=== PATIENT | female | born 1950 | race African-American/Black ===

== ENCOUNTER 2023-11-09 11:52 | Inpatient (IN) | payer MEDICARE, OTHER ==
[~2023-11-09] VITALS: Ht 165.1 cm; Wt 70.8 kg
[2023-11-09] MEDS ORDERED: 0.9% SODIUM CHLORIDE 10 ML SYRINGE IVP PRN (12:15)
[2023-11-09] MEDS: SODIUM CHLORIDE 0.9% 2,700 ML IV ONE (12:18)
[2023-11-09] MEDS: METOPROLOL TARTRATE 5 MG/5 ML VIAL IVP ONE (12:26)
[2023-11-09] MEDS ORDERED: ONDANSETRON HCL 4 MG/2 ML VIAL IVP PRN (12:30)
[2023-11-09] MEDS ORDERED: ACETAMINOPHEN 325 MG TABLET PO PRN (12:30)
[2023-11-09 12:53] LABS: APPEARANCE,URINE HAZY (CLEAR); COLOR,URINE YELLOW (YELLOW); GLUCOSE, URINE (UA) NEGATIVE (NEGATIVE); KETONES,URINE TRACE mg/dL (NEGATIVE); LEUKOCYTE ESTERASE ,URINE NEGATIVE (NEGATIVE); NITRATE,URINE NEGATIVE (NEGATIVE); OCCULT BLOOD,URINE TRACE (NEGATIVE); PH,URINE 5.5 (5.0-8.0); PROTEIN,URINE 30-70 mg/dL (NEGATIVE); SPECIFIC GRAVITIY, URINE 1.026 (1.003-1.030)
[2023-11-09 12:58] LABS: BILIRUBIN,URINE SMALL (NEGATIVE)
[2023-11-09 13:22] LABS: BACTERIA,URINE Few /HPF (None Seen); RBC,URINE 0-2 /HPF (0-2); SQUAMOUS EPITHELIAL CELL,UR Many /LPF (None Seen); WBC,URINE None Seen /HPF (0-5)
[2023-11-09 13:41] LABS: GLUCOMETER DEV NAME(LOC) ERT.5; GLUCOSE,POINT OF CARE 96 MG/DL (70-110)
[2023-11-09 13:47] LABS: BASOPHILS % (AUTO) 0.5 % (0.0-2.0); EOSINOPHILS % (AUTO) 1.2 % (1.0-6.0); HEMATOCRIT 45.3 % (36-46); HEMOGLOBIN 14.6 g/dL (12.0-16.0); LYMPHOCYTES # (AUTO) 1.9 K/uL (1.0-4.8); LYMPHOCYTES % (AUTO) 47.1 % (22.0-44.0); MEAN CORPUSCULAR HEMOGLOBIN 28.5 pg (26.0-34.0); MEAN CORPUSCULAR HGB CONC 32.2 G/dL (31.0-37.0); MEAN CORPUSCULAR VOLUME 88 fL (80-100); MONOCYTES # (AUTO) 0.4 K/uL (0.1-1.0); MONOCYTES % (AUTO) 9.5 % (2.0-9.0); NEUTROPHILS # (AUTO) 1.7 K/uL (1.8-7.7); NEUTROPHILS % (AUTO) 41.7 % (40.0-70.0); PLATELET COUNT (AUTO) 226 K/uL (150-450); RED BLOOD CELL COUNT(AUTO) 5.12 MIL/uL (4.00-5.20); RED CELL DISTRIBUTION WIDTH 16.7 % (11.5-14.5)
[2023-11-09 13:48] LABS: PH,URINE DRUG SCREEN 5.5 (5.0-8.0)
[2023-11-09 13:54] LABS: INR 1.1 (0.9-1.1); PROTHROMBIN TIME 11.2 SEC (9.4-11.6)
[2023-11-09 13:55] LABS: ANION GAP 9 mmol/L (8-16); CALCIUM, TOTAL 9.1 mg/dL (8.8-10.5); CARBON DIOXIDE 28 mmol/L (22-29); CHLORIDE 107 mmol/L (98-107); CREATININE 1.44 mg/dL (0.60-1.30); GLOMERULAR FILTR. RATE CALC 43 mL/min (>60); GLUCOSE,RANDOM 92 mg/dL (70-110); POTASSIUM 3.4 mmol/L (3.5-5.1); SODIUM SERUM 144 mmol/L (136-145); UREA NITROGEN, BLOOD 26 mg/dL (7-18)
[2023-11-09 13:56] LABS: ALCOHOL, URINE DRUG SCREEN NEGATIVE (NEGATIVE); AMPHET/METH SCREEN,URINE POSITIVE (NEGATIVE); BARBITURATE SCREEN, URINE NEGATIVE (NEGATIVE); BENZODIAZEPINES SCREEN,URINE NEGATIVE (NEGATIVE); CANNABINOID SCREEN,URINE NEGATIVE (NEGATIVE); COCAINE SCREEN,URINE NEGATIVE (NEGATIVE); METHADONE SCREEN, URINE NEGATIVE (NEGATIVE); OPIATE SCREEN,URINE NEGATIVE (NEGATIVE); PHENCYCLIDINE SCREEN,URINE NEGATIVE (NEGATIVE)
[2023-11-09 14:08] LABS: LACTIC ACID 1.6 mmol/L (0.4-2.0)
[2023-11-09 14:10] LABS: ALANINE AMINOTRANSFERASE 15 U/L (12-78); ALBUMIN 2.8 g/dL (3.4-5.0); ALKALINE PHOSPHATASE 99 U/L (46-116); ASPARTATE AMINOTRANSFERASE 36 U/L (15-37); BILIRUBIN,TOTAL 0.8 mg/dL (0.1-1.0); THYROID STIMULATING HORMONE 4.18 uIU/mL (0.36-3.74); TOTAL PROTEIN, SERUM 6.7 g/dL (6.4-8.2)
[2023-11-09] MEDS: SODIUM CHLORIDE 0.9% 1,000 ML IV ONE ×2 (14:11→22:51)
[2023-11-09] MEDS: NALOXONE HCL 1 MG/ML 2 ML SYRINGE IVP ONE (14:11)
[2023-11-09] MEDS ORDERED: POTASSIUM CHLORIDE 20 MEQ ER TABLET PO PRN (14:45)
[2023-11-09] MEDS: LABETALOL HCL 5 MG/ML 20 ML VIAL IVP ONE (15:02)
[2023-11-09] MEDS: HEPARIN SODIUM,PORCINE 5,000 UNITS/ML VIAL SQ SCH (15:43)
[2023-11-09] MEDS ORDERED: SODIUM CHLORIDE 0.9% 500 ML IV ONE (17:37)
[2023-11-09] MEDS: AMIODARONE HCL 150 MG in DEXTROSE 5%-WATER 97 ML IV ONE (17:52)
[2023-11-09] MEDS: AMIODARONE HCL 360 MG in DEXTROSE 5%-WATER 242.8 ML IV ONE (18:30)
[2023-11-09 19:07] LABS: B-TYPE NATRIURETIC PEPTIDE 67 pg/mL (0-100)
[2023-11-09 19:16] LABS: CREATINE KINASE, TOTAL ONLY 50 U/L (26-192)
[2023-11-09 19:21] LABS: TROPONIN I-HIGH SENSITIVITY 78 ng/L (<51)
[2023-11-09 20:37] VITALS: BP 141/82; PULSE 59; RESP 19; TEMP 97.8; O2SAT 98
[2023-11-09] MEDS: AMIODARONE HCL 540 MG in DEXTROSE 5%-WATER 239.2 ML IV ONE (23:44)
[2023-11-10 00:22] VITALS: BP 138/91; PULSE 102; RESP 18; TEMP 98.2; O2SAT 96
[2023-11-10 06:06] VITALS: BP 143/118; PULSE 96; RESP 18; TEMP 98; O2SAT 88
[2023-11-10] MEDS: PANTOPRAZOLE SODIUM 40 MG/VIAL IVP SCH (08:22)
[2023-11-10 08:25] VITALS: BP 123/76; PULSE 88; RESP 18; TEMP 98; O2SAT 96
[2023-11-10 12:03] VITALS: BP 172/88; PULSE 71; RESP 18; TEMP 98; O2SAT 97
[2023-11-10 16:51] VITALS: BP 148/99; PULSE 100; RESP 18; TEMP 98.2; O2SAT 96
[2023-11-10 16:52] LABS: BASOPHILS % (AUTO) 0.7 % (0.0-2.0); EOSINOPHILS % (AUTO) 2.4 % (1.0-6.0); HEMATOCRIT 41.6 % (36-46); HEMOGLOBIN 13.6 g/dL (12.0-16.0); LYMPHOCYTES # (AUTO) 1.8 K/uL (1.0-4.8); LYMPHOCYTES % (AUTO) 48.5 % (22.0-44.0); MEAN CORPUSCULAR HEMOGLOBIN 28.8 pg (26.0-34.0); MEAN CORPUSCULAR HGB CONC 32.8 G/dL (31.0-37.0); MEAN CORPUSCULAR VOLUME 88 fL (80-100); MONOCYTES # (AUTO) 0.4 K/uL (0.1-1.0); MONOCYTES % (AUTO) 10.6 % (2.0-9.0); NEUTROPHILS # (AUTO) 1.4 K/uL (1.8-7.7); NEUTROPHILS % (AUTO) 37.8 % (40.0-70.0); PLATELET COUNT (AUTO) 185 K/uL (150-450); RED BLOOD CELL COUNT(AUTO) 4.73 MIL/uL (4.00-5.20); WHITE BLOOD COUNT (AUTO) 3.8 K/uL (4.5-11.0)
[2023-11-10 17:10] LABS: ALANINE AMINOTRANSFERASE 15 U/L (12-78); ALKALINE PHOSPHATASE 92 U/L (46-116); ANION GAP 11 mmol/L (8-16); ASPARTATE AMINOTRANSFERASE 34 U/L (15-37); CALCIUM, TOTAL 9.3 mg/dL (8.8-10.5); CARBON DIOXIDE 26 mmol/L (22-29); CHLORIDE 105 mmol/L (98-107); CREATININE 1.01 mg/dL (0.60-1.30); FREE T4 (FREE THYROXINE) 1.23 ng/dL (0.76-1.46); GLOMERULAR FILTR. RATE CALC > 60 mL/min (>60); GLUCOSE,RANDOM 89 mg/dL (70-110); SODIUM SERUM 142 mmol/L (136-145); TOTAL PROTEIN, SERUM 6.6 g/dL (6.4-8.2); UREA NITROGEN, BLOOD 13 mg/dL (7-18)
[2023-11-10 17:11] LABS: TROPONIN I-HIGH SENSITIVITY 55 ng/L (<51)
[2023-11-10] MEDS ORDERED: SODIUM CHLORIDE 0.9% 500 ML IV ONE (18:06)
[2023-11-10] MEDS: AMIODARONE HCL 750 MG in DEXTROSE 5%-WATER 485 ML IV SCH (18:32)
[2023-11-10] MEDS: POTASSIUM CHL 10 MEQ/WATER 50 ML IV PRN (18:38)
[2023-11-10 20:30] VITALS: BP 160/86; PULSE 93; RESP 22; O2SAT 100
[2023-11-11] VITALS (7 sets, daily range): BP systolic 98–166; BP diastolic 45–105; PULSE 77–127; RESP 18–20; TEMP 96.5–97.6; O2SAT 95–100
[2023-11-11] MEDS: ATORVASTATIN CALCIUM 20 MG TABLET PO SCH (08:43)
[2023-11-11] MEDS: ASPIRIN 81 MG CHEWABLE TABLET PO SCH (08:43)
[2023-11-11] MEDS ORDERED: HEPARIN SODIUM 25000 UNITS/D5W 250 ML IV PRN (11:00)
[2023-11-11] MEDS ORDERED: HEPARIN SODIUM,PORCINE 5,000 UNITS/ML VIAL IVP PRN ×2 (11:00)
[2023-11-11 11:29] LABS: BASOPHILS % (AUTO) 1.1 % (0.0-2.0); HEMATOCRIT 45.3 % (36-46); HEMOGLOBIN 14.7 g/dL (12.0-16.0); LYMPHOCYTES # (AUTO) 1.8 K/uL (1.0-4.8); LYMPHOCYTES % (AUTO) 39.2 % (22.0-44.0); MEAN CORPUSCULAR HEMOGLOBIN 28.7 pg (26.0-34.0); MEAN CORPUSCULAR HGB CONC 32.4 G/dL (31.0-37.0); MEAN CORPUSCULAR VOLUME 89 fL (80-100); MONOCYTES # (AUTO) 0.6 K/uL (0.1-1.0); MONOCYTES % (AUTO) 12.8 % (2.0-9.0); NEUTROPHILS % (AUTO) 44.9 % (40.0-70.0); PLATELET COUNT (AUTO) 183 K/uL (150-450); RED BLOOD CELL COUNT(AUTO) 5.11 MIL/uL (4.00-5.20); RED CELL DISTRIBUTION WIDTH 16.9 % (11.5-14.5); WHITE BLOOD COUNT (AUTO) 4.5 K/uL (4.5-11.0)
[2023-11-11] MEDS: ENOXAPARIN SODIUM 80 MG/0.8 ML PF SYRINGE SQ SCH (20:46)
[2023-11-11] MEDS: HydrALAZINE HCL 20 MG/ML VIAL IVP PRN (20:46)
[2023-11-11] MEDS: METOPROLOL TARTRATE 25 MG TABLET PO SCH (20:55)
[2023-11-12] VITALS: BP 142/82; PULSE 103; RESP 17; TEMP 96.9; O2SAT 96
[2023-11-12 04:00] VITALS: BP 151/93; PULSE 80; RESP 18; TEMP 97.6; O2SAT 97
[2023-11-12] MEDS: METOPROLOL TARTRATE 5 MG/5 ML VIAL IVP ONE (06:46)
[2023-11-12 08:24] VITALS: BP 140/91; PULSE 96; RESP 19; TEMP 97.8; O2SAT 99
[2023-11-12] MEDS: DEXTROSE 5%-0.45% SODIUM CHL 1,000 ML IV SCH (11:00)
[2023-11-12 12:33] VITALS: BP 159/90; PULSE 102; RESP 18; TEMP 98.6; O2SAT 99
[2023-11-12] MEDS: HALOPERIDOL LACTATE 5 MG/ML VIAL IM PRN (16:32)
[2023-11-12 16:42] VITALS: BP 148/96; PULSE 92; RESP 18; TEMP 97.9; O2SAT 96
[2023-11-12 20:12] VITALS: BP 147/76; PULSE 70; RESP 20; TEMP 97.3; O2SAT 93
[2023-11-13 00:38] VITALS: BP 129/75; PULSE 70; RESP 20; TEMP 97.5; O2SAT 95
[2023-11-13 03:52] VITALS: BP 135/86; PULSE 92; RESP 20; TEMP 97.7; O2SAT 97
[2023-11-13] MEDS: METOPROLOL TARTRATE 5 MG/5 ML VIAL IVP SCH (05:02)
[2023-11-13 09:46] VITALS: BP 129/97; PULSE 107; RESP 18; TEMP 97.1; O2SAT 97
[2023-11-13 11:27] VITALS: BP 125/73; PULSE 98; RESP 19; TEMP 98; O2SAT 96
[2023-11-13 12:32] LABS: BASOPHILS % (AUTO) 0.4 % (0.0-2.0); EOSINOPHILS % (AUTO) 1.4 % (1.0-6.0); HEMATOCRIT 50.9 % (36-46); HEMOGLOBIN 16.5 g/dL (12.0-16.0); LYMPHOCYTES # (AUTO) 1.8 K/uL (1.0-4.8); LYMPHOCYTES % (AUTO) 31.5 % (22.0-44.0); MEAN CORPUSCULAR HEMOGLOBIN 28.6 pg (26.0-34.0); MEAN CORPUSCULAR HGB CONC 32.4 G/dL (31.0-37.0); MEAN CORPUSCULAR VOLUME 88 fL (80-100); MONOCYTES # (AUTO) 0.8 K/uL (0.1-1.0); MONOCYTES % (AUTO) 13.6 % (2.0-9.0); NEUTROPHILS % (AUTO) 53.1 % (40.0-70.0); PLATELET COUNT (AUTO) 174 K/uL (150-450); RED BLOOD CELL COUNT(AUTO) 5.78 MIL/uL (4.00-5.20); RED CELL DISTRIBUTION WIDTH 17.1 % (11.5-14.5); WHITE BLOOD COUNT (AUTO) 5.6 K/uL (4.5-11.0)
[2023-11-13] MEDS: LORazepam 2 MG/ML VIAL IVP ONE (13:50)
[2023-11-13 14:21] LABS: CALCIUM, TOTAL 9.8 mg/dL (8.8-10.5); CREATININE 1.25 mg/dL (0.60-1.30); POTASSIUM 3.8 mmol/L (3.5-5.1)
[2023-11-13 16:36] VITALS: BP 171/90; PULSE 93; RESP 20; TEMP 97.8; O2SAT 99
[2023-11-13 20:30] VITALS: BP 92/50; PULSE 71; RESP 18; TEMP 97.8; O2SAT 99
[2023-11-14 01:32] VITALS: BP 147/81; PULSE 89; RESP 18; TEMP 97.9; O2SAT 95
[2023-11-14 04:00] VITALS: BP 104/67; PULSE 103; RESP 20; TEMP 98.1; O2SAT 96
[2023-11-14 06:50] VITALS: BP 109/70; PULSE 94
[2023-11-14 08:12] LABS: BASOPHILS % (AUTO) 0.5 % (0.0-2.0); EOSINOPHILS % (AUTO) 1.3 % (1.0-6.0); HEMATOCRIT 45.7 % (36-46); HEMOGLOBIN 14.8 g/dL (12.0-16.0); LYMPHOCYTES # (AUTO) 1.8 K/uL (1.0-4.8); LYMPHOCYTES % (AUTO) 32.8 % (22.0-44.0); MEAN CORPUSCULAR HEMOGLOBIN 28.5 pg (26.0-34.0); MEAN CORPUSCULAR HGB CONC 32.4 G/dL (31.0-37.0); MEAN CORPUSCULAR VOLUME 88 fL (80-100); MONOCYTES # (AUTO) 0.7 K/uL (0.1-1.0); MONOCYTES % (AUTO) 12.1 % (2.0-9.0); NEUTROPHILS % (AUTO) 53.3 % (40.0-70.0); PLATELET COUNT (AUTO) 161 K/uL (150-450); WHITE BLOOD COUNT (AUTO) 5.6 K/uL (4.5-11.0)
[2023-11-14 09:42] LABS: CALCIUM, TOTAL 9.4 mg/dL (8.8-10.5); CREATININE 1.33 mg/dL (0.60-1.30); POTASSIUM 3.2 mmol/L (3.5-5.1)
[2023-11-14 11:18] VITALS: BP 121/84; PULSE 92; RESP 18; TEMP 98; O2SAT 94
[2023-11-14] MEDS ORDERED: ALBU2.5V39 NEB (12:12)
[2023-11-14] MEDS ORDERED: POTASSIUM CHLORIDE 20 MEQ ER TABLET PO PRN (12:15)
[2023-11-14 15:18] VITALS: BP 138/78; PULSE 86; RESP 19; TEMP 97.6; O2SAT 96
[2023-11-14] MEDS: POTASSIUM CHL 10 MEQ/WATER 50 ML IV PRN (16:30)
[2023-11-14 19:59] VITALS: BP 135/79; PULSE 68; RESP 18; TEMP 98; O2SAT 95
[2023-11-15 00:14] VITALS: BP 160/74; PULSE 53; RESP 19; TEMP 97.7; O2SAT 96
[2023-11-15 04:44] VITALS: BP 145/83; PULSE 102; RESP 16; TEMP 98.1; O2SAT 95
[2023-11-15] MEDS: *CLINICAL-PERIPHERAL PARENTERAL NUTRITION DOSING CLINICAL ONE (10:45)
[2023-11-15 11:06] VITALS: BP 128/77; PULSE 84; RESP 18; TEMP 97.4; O2SAT 96
[2023-11-15] MEDS: DEXTROSE 5%-0.45% SODIUM CHL 1,000 ML IV SCH (11:57)
[2023-11-15 15:09] VITALS: BP 141/74; PULSE 93; RESP 18; TEMP 97.7; O2SAT 95
[2023-11-15 19:14] VITALS: BP 139/93; PULSE 91; RESP 18; TEMP 97.6; O2SAT 99
[2023-11-15] MEDS: [UNRECOGNIZED DRUG - OTHER] IV SCH (21:59)
[2023-11-15] MEDS: POTASSIUM ACETATE IV SCH (21:59)
[2023-11-15] MEDS: POTASSIUM PHOS M BASIC D BASIC IV SCH (21:59)
[2023-11-15] MEDS: PPN IV SCH (21:59)
[2023-11-16] VITALS (8 sets, daily range): BP systolic 99–153; BP diastolic 73–106; PULSE 62–96; RESP 16–18; TEMP 97.5–98.4; O2SAT 95–99
[2023-11-16] MEDS: PPN IV SCH (21:57)
[2023-11-16] MEDS: [UNRECOGNIZED DRUG - OTHER] IV SCH (21:57)
[2023-11-16] MEDS: POTASSIUM PHOS M BASIC D BASIC IV SCH (21:57)
[2023-11-16] MEDS: POTASSIUM ACETATE IV SCH (21:57)
[2023-11-17 03:39] VITALS: BP 149/88; PULSE 100; RESP 19; TEMP 97.7; O2SAT 99
[2023-11-17 07:48] VITALS: BP 124/50; PULSE 80; RESP 19; TEMP 98.3; O2SAT 97
[2023-11-17 07:57] LABS: ALBUMIN 3.2 g/dL (3.4-5.0); BILIRUBIN,TOTAL 0.7 mg/dL (0.1-1.0); CALCIUM, TOTAL 10.3 mg/dL (8.8-10.5); CREATININE 1.22 mg/dL (0.60-1.30); MAGNESIUM 1.8 mg/dL (1.80-2.40); PHOSPHORUS 3.7 mg/dL (2.5-4.9); TOTAL PROTEIN, SERUM 7.6 g/dL (6.4-8.2)
[2023-11-17 11:11] VITALS: BP 150/95; PULSE 80; RESP 20; TEMP 98; O2SAT 95
[2023-11-17 15:59] VITALS: BP 144/81; PULSE 88; RESP 19; TEMP 98.2; O2SAT 96
[2023-11-17] MEDS ORDERED: ChlorproMAZINE HCL 100 MG TABLET PO SCH (16:00)
[2023-11-17 20:02] VITALS: BP 96/44; PULSE 90; RESP 17; TEMP 97.8; O2SAT 96
[2023-11-18 00:12] VITALS: BP 125/82; PULSE 60; RESP 17; TEMP 96.7; O2SAT 96
[2023-11-18 06:08] VITALS: BP 128/91; PULSE 79; RESP 16; TEMP 98.1; O2SAT 97
[2023-11-18 08:00] VITALS: BP 148/89; PULSE 68; RESP 16; TEMP 97.1; O2SAT 98
[2023-11-18 12:00] VITALS: BP 142/77; PULSE 60; RESP 16; TEMP 98.2
[2023-11-18 12:13] LABS: ALBUMIN 2.7 g/dL (3.4-5.0); BILIRUBIN,TOTAL 0.7 mg/dL (0.1-1.0); CALCIUM, TOTAL 9.3 mg/dL (8.8-10.5); CREATININE 1.2 mg/dL (0.60-1.30); MAGNESIUM 1.8 mg/dL (1.80-2.40); PHOSPHORUS 3.5 mg/dL (2.5-4.9); POTASSIUM 3.5 mmol/L (3.5-5.1); TOTAL PROTEIN, SERUM 6.3 g/dL (6.4-8.2)
[2023-11-18] MEDS ORDERED: SODIUM CHLORIDE 0.9% 0 ML IV ONE (12:59)
[2023-11-18] MEDS ORDERED: SODIUM CHLORIDE 0.9% 500 ML IV ONE (13:17)
[2023-11-18] MEDS: POTASSIUM CHL 10 MEQ/WATER 50 ML IV SCH (13:22)
[2023-11-18 16:00] VITALS: BP 154/78; PULSE 62; RESP 16; TEMP 97.3; O2SAT 97
[2023-11-18 21:30] VITALS: BP 130/79; PULSE 78; RESP 18; TEMP 97.1; O2SAT 100
[2023-11-18] MEDS ORDERED: LORazepam 2 MG/ML VIAL ONE (22:55)
[2023-11-19] VITALS (7 sets, daily range): BP systolic 81–136; BP diastolic 52–90; PULSE 56–103; RESP 17–19; TEMP 96.6–97.8; O2SAT 87–98
[2023-11-19 07:03] LABS: ALANINE AMINOTRANSFERASE 29 U/L (12-78); ALBUMIN 2.8 g/dL (3.4-5.0); ALKALINE PHOSPHATASE 85 U/L (46-116); ANION GAP 10 mmol/L (8-16); ASPARTATE AMINOTRANSFERASE 44 U/L (15-37); BILIRUBIN,TOTAL 0.6 mg/dL (0.1-1.0); CALCIUM, TOTAL 9.6 mg/dL (8.8-10.5); CARBON DIOXIDE 23 mmol/L (22-29); CHLORIDE 103 mmol/L (98-107); CREATININE 1.06 mg/dL (0.60-1.30); GLOMERULAR FILTR. RATE CALC > 60 mL/min (>60); GLUCOSE,RANDOM 87 mg/dL (70-110); PHOSPHORUS 3.1 mg/dL (2.5-4.9); POTASSIUM 3.9 mmol/L (3.5-5.1); SODIUM SERUM 136 mmol/L (136-145); TOTAL PROTEIN, SERUM 6.4 g/dL (6.4-8.2); UREA NITROGEN, BLOOD 23 mg/dL (7-18)
[2023-11-19] MEDS ORDERED: NICOTINE 7 MG/24 HOUR PATCH TD SCH (09:00)
[2023-11-19] MEDS: POTASSIUM ACETATE IV SCH (23:58)
[2023-11-19] MEDS: POTASSIUM PHOS M BASIC D BASIC IV SCH (23:58)
[2023-11-19] MEDS: [UNRECOGNIZED DRUG - OTHER] IV SCH (23:58)
[2023-11-19] MEDS: PPN IV SCH (23:58)
[2023-11-20] VITALS (7 sets, daily range): BP systolic 77–144; BP diastolic 24–106; PULSE 44–101; RESP 17–18; TEMP 96.4–97.9; O2SAT 93–100
[2023-11-20 07:42] LABS: BASOPHILS % (AUTO) 0.4 % (0.0-2.0); EOSINOPHILS % (AUTO) 1.2 % (1.0-6.0); HEMATOCRIT 43.6 % (36-46); HEMOGLOBIN 14.3 g/dL (12.0-16.0); LYMPHOCYTES # (AUTO) 1.7 K/uL (1.0-4.8); LYMPHOCYTES % (AUTO) 49.9 % (22.0-44.0); MEAN CORPUSCULAR HEMOGLOBIN 28.5 pg (26.0-34.0); MEAN CORPUSCULAR HGB CONC 32.8 G/dL (31.0-37.0); MEAN CORPUSCULAR VOLUME 87 fL (80-100); MONOCYTES # (AUTO) 0.4 K/uL (0.1-1.0); MONOCYTES % (AUTO) 10.7 % (2.0-9.0); NEUTROPHILS # (AUTO) 1.3 K/uL (1.8-7.7); NEUTROPHILS % (AUTO) 37.8 % (40.0-70.0); PLATELET COUNT (AUTO) 196 K/uL (150-450); RED BLOOD CELL COUNT(AUTO) 5.01 MIL/uL (4.00-5.20); RED CELL DISTRIBUTION WIDTH 16.6 % (11.5-14.5); WHITE BLOOD COUNT (AUTO) 3.4 K/uL (4.5-11.0)
[2023-11-20 07:59] LABS: ANION GAP 9 mmol/L (8-16); CALCIUM, TOTAL 9.3 mg/dL (8.8-10.5); CARBON DIOXIDE 24 mmol/L (22-29); CHLORIDE 104 mmol/L (98-107); CREATININE 0.99 mg/dL (0.60-1.30); GLOMERULAR FILTR. RATE CALC > 60 mL/min (>60); GLUCOSE,RANDOM 86 mg/dL (70-110); PHOSPHORUS 3.1 mg/dL (2.5-4.9); POTASSIUM 4.1 mmol/L (3.5-5.1); SODIUM SERUM 137 mmol/L (136-145); UREA NITROGEN, BLOOD 23 mg/dL (7-18)
[2023-11-21] VITALS (7 sets, daily range): BP systolic 106–146; BP diastolic 69–93; PULSE 77–100; RESP 16–19; TEMP 96.7–97.6; O2SAT 0–100
[2023-11-21 09:48] LABS: ANION GAP 9 mmol/L (8-16); CALCIUM, TOTAL 9.6 mg/dL (8.8-10.5); CARBON DIOXIDE 21 mmol/L (22-29); CHLORIDE 104 mmol/L (98-107); CREATININE 0.98 mg/dL (0.60-1.30); GLOMERULAR FILTR. RATE CALC > 60 mL/min (>60); GLUCOSE,RANDOM 76 mg/dL (70-110); PHOSPHORUS 3.4 mg/dL (2.5-4.9); POTASSIUM 4.7 mmol/L (3.5-5.1); SODIUM SERUM 134 mmol/L (136-145); UREA NITROGEN, BLOOD 21 mg/dL (7-18)
[2023-11-21 11:47] LABS: BASOPHILS % (AUTO) 0.7 % (0.0-2.0); EOSINOPHILS % (AUTO) 1.2 % (1.0-6.0); HEMATOCRIT 42.1 % (36-46); HEMOGLOBIN 13.3 g/dL (12.0-16.0); LYMPHOCYTES # (AUTO) 2.6 K/uL (1.0-4.8); LYMPHOCYTES % (AUTO) 50.8 % (22.0-44.0); MEAN CORPUSCULAR HEMOGLOBIN 28.1 pg (26.0-34.0); MEAN CORPUSCULAR HGB CONC 31.7 G/dL (31.0-37.0); MEAN CORPUSCULAR VOLUME 89 fL (80-100); MONOCYTES # (AUTO) 0.7 K/uL (0.1-1.0); MONOCYTES % (AUTO) 13.3 % (2.0-9.0); NEUTROPHILS # (AUTO) 1.7 K/uL (1.8-7.7); PLATELET COUNT (AUTO) 200 K/uL (150-450); RED BLOOD CELL COUNT(AUTO) 4.75 MIL/uL (4.00-5.20); RED CELL DISTRIBUTION WIDTH 16.8 % (11.5-14.5)
[2023-11-21] MEDS: LORazepam 2 MG/ML VIAL IVP ONE (14:55)
[2023-11-21] MEDS: [UNRECOGNIZED DRUG - OTHER] IV SCH (22:10)
[2023-11-21] MEDS: PPN IV SCH (22:10)
[2023-11-21] MEDS: SODIUM ACETATE IV SCH (22:10)
[2023-11-21] MEDS: POTASSIUM PHOS M BASIC D BASIC IV SCH (22:10)
[2023-11-22 00:03] VITALS: BP 104/80; PULSE 94; RESP 19; TEMP 97.7; O2SAT 98
[2023-11-22 05:37] VITALS: BP 135/59; PULSE 89; RESP 19; TEMP 97.6; O2SAT 100
[2023-11-22 08:00] VITALS: BP 107/72; RESP 18; O2SAT 98
[2023-11-22 11:16] VITALS: BP 101/64; PULSE 84; RESP 18; TEMP 98; O2SAT 98
[2023-11-22 15:10] VITALS: BP 138/72; PULSE 80; RESP 18; TEMP 98.2; O2SAT 97
[2023-11-22 15:37] LABS: ANION GAP 9 mmol/L (8-16); CALCIUM, TOTAL 9.7 mg/dL (8.8-10.5); CARBON DIOXIDE 24 mmol/L (22-29); CHLORIDE 103 mmol/L (98-107); CREATININE 0.96 mg/dL (0.60-1.30); GLOMERULAR FILTR. RATE CALC > 60 mL/min (>60); GLUCOSE,RANDOM 82 mg/dL (70-110); PHOSPHORUS 3.3 mg/dL (2.5-4.9); POTASSIUM 3.8 mmol/L (3.5-5.1); SODIUM SERUM 136 mmol/L (136-145); UREA NITROGEN, BLOOD 19 mg/dL (7-18)
[2023-11-22 19:41] VITALS: BP 134/78; PULSE 60; RESP 19; TEMP 97.5; O2SAT 95
[2023-11-23] VITALS (7 sets, daily range): BP systolic 101–137; BP diastolic 67–90; PULSE 53–107; RESP 14–18; TEMP 96.9–97.5; O2SAT 97–100
[2023-11-23 08:17] LABS: ANION GAP 8 mmol/L (8-16); CALCIUM, TOTAL 9.5 mg/dL (8.8-10.5); CARBON DIOXIDE 27 mmol/L (22-29); CHLORIDE 104 mmol/L (98-107); GLOMERULAR FILTR. RATE CALC > 60 mL/min (>60); GLUCOSE,RANDOM 82 mg/dL (70-110); PHOSPHORUS 3.8 mg/dL (2.5-4.9); SODIUM SERUM 139 mmol/L (136-145); UREA NITROGEN, BLOOD 20 mg/dL (7-18)
[2023-11-24 00:08] VITALS: BP 134/77; PULSE 85; RESP 16; RESP 6; TEMP 97.4; O2SAT 94
[2023-11-24 04:07] VITALS: BP 98/70; PULSE 54; RESP 16; TEMP 97.5; O2SAT 100
[2023-11-24 07:00] LABS: CALCIUM, TOTAL 9.6 mg/dL (8.8-10.5); CREATININE 1.11 mg/dL (0.60-1.30); PHOSPHORUS 3.4 mg/dL (2.5-4.9); POTASSIUM 3.9 mmol/L (3.5-5.1)
[2023-11-24] MEDS ORDERED: AMIODARONE HCL 150 MG in DEXTROSE 5%-WATER 97 ML IV ONE (10:30)
[2023-11-24] MEDS: AMIODARONE HCL 360 MG in DEXTROSE 5%-WATER 242.8 ML IV ONE (10:30)
[2023-11-24] MEDS ORDERED: GLUCAGON,HUMAN RECOMBINANT 1 MG VIAL IVP ONE (12:00)
[2023-11-24] MEDS ORDERED: FentaNYL CITRATE PF 100 MCG/2 ML VIAL IVP ONE (12:00)
[2023-11-24] MEDS ORDERED: DiphenhydrAMINE HCL 50 MG/ML VIAL IVP ONE (12:00)
[2023-11-24] MEDS ORDERED: MIDAZOLAM HCL 2 MG/2 ML VIAL IVP ONE (12:00)
[2023-11-24] MEDS ORDERED: KETAMINE HCL 50 MG/ML 10 ML VIAL IVP ONE (12:00)
[2023-11-24 13:00] VITALS: BP 120/68; PULSE 89; RESP 17; TEMP 97.9; O2SAT 98
[2023-11-24] MEDS ORDERED: AMIODARONE HCL 540 MG in DEXTROSE 5%-WATER 239.2 ML IV ONE (16:30)
[2023-11-24 18:39] VITALS: BP 137/70; PULSE 78; RESP 14; TEMP 97.8; O2SAT 98
[2023-11-24 20:00] VITALS: BP 137/97; PULSE 81; RESP 17; TEMP 97.6; O2SAT 100
[2023-11-25] VITALS (7 sets, daily range): BP systolic 106–128; BP diastolic 58–100; PULSE 60–112; RESP 16–18; TEMP 96.4–99; O2SAT 98–100
[2023-11-25 08:04] LABS: CALCIUM, TOTAL 9.8 mg/dL (8.8-10.5); CREATININE 1.35 mg/dL (0.60-1.30); MAGNESIUM 2.1 mg/dL (1.80-2.40); PHOSPHORUS 3.7 mg/dL (2.5-4.9); POTASSIUM 4.2 mmol/L (3.5-5.1)
[2023-11-25] MEDS ORDERED: AMIODARONE HCL 750 MG in DEXTROSE 5%-WATER 485 ML IV SCH (10:30)
[2023-11-25] MEDS: BISACODYL 10 MG RECTAL RECTAL SUPPOSITORY PR PRN (16:27)
[2023-11-26] VITALS (8 sets, daily range): BP systolic 102–128; BP diastolic 49–87; PULSE 58–99; RESP 16–18; TEMP 96.8–98.2; O2SAT 95–98
[2023-11-26 09:48] LABS: ANION GAP 8 mmol/L (8-16); CALCIUM, TOTAL 9.3 mg/dL (8.8-10.5); CARBON DIOXIDE 27 mmol/L (22-29); CHLORIDE 102 mmol/L (98-107); CREATININE 1.04 mg/dL (0.60-1.30); GLOMERULAR FILTR. RATE CALC > 60 mL/min (>60); GLUCOSE,RANDOM 89 mg/dL (70-110); PHOSPHORUS 3.5 mg/dL (2.5-4.9); POTASSIUM 3.8 mmol/L (3.5-5.1); SODIUM SERUM 137 mmol/L (136-145); UREA NITROGEN, BLOOD 28 mg/dL (7-18)
[2023-11-26] MEDS: PPN IV SCH (22:37)
[2023-11-26] MEDS: SODIUM ACETATE IV SCH (22:37)
[2023-11-26] MEDS: POTASSIUM PHOS M BASIC D BASIC IV SCH (22:37)
[2023-11-26] MEDS: [UNRECOGNIZED DRUG - OTHER] IV SCH (22:37)
[2023-11-27 00:24] VITALS: BP 135/76; PULSE 93; RESP 17; TEMP 97.4; O2SAT 93
[2023-11-27 04:12] VITALS: BP 115/75; PULSE 91; RESP 18; TEMP 97.3; O2SAT 97
[2023-11-27 07:11] LABS: ANION GAP 8 mmol/L (8-16); CALCIUM, TOTAL 9.4 mg/dL (8.8-10.5); CARBON DIOXIDE 22 mmol/L (22-29); CHLORIDE 101 mmol/L (98-107); CREATININE 0.94 mg/dL (0.60-1.30); GLOMERULAR FILTR. RATE CALC > 60 mL/min (>60); GLUCOSE,RANDOM 145 mg/dL (70-110); PHOSPHORUS 3.8 mg/dL (2.5-4.9); POTASSIUM 4.6 mmol/L (3.5-5.1); SODIUM SERUM 131 mmol/L (136-145); UREA NITROGEN, BLOOD 26 mg/dL (7-18)
[2023-11-27 08:05] LABS: BASOPHILS % (AUTO) 0.5 % (0.0-2.0); EOSINOPHILS % (AUTO) 1.9 % (1.0-6.0); HEMATOCRIT 39.3 % (36-46); HEMOGLOBIN 12.6 g/dL (12.0-16.0); LYMPHOCYTES # (AUTO) 2.3 K/uL (1.0-4.8); LYMPHOCYTES % (AUTO) 39.3 % (22.0-44.0); MEAN CORPUSCULAR HEMOGLOBIN 28.3 pg (26.0-34.0); MEAN CORPUSCULAR HGB CONC 32.1 G/dL (31.0-37.0); MEAN CORPUSCULAR VOLUME 88 fL (80-100); MONOCYTES # (AUTO) 0.8 K/uL (0.1-1.0); MONOCYTES % (AUTO) 13.7 % (2.0-9.0); NEUTROPHILS # (AUTO) 2.6 K/uL (1.8-7.7); NEUTROPHILS % (AUTO) 44.6 % (40.0-70.0); PLATELET COUNT (AUTO) 159 K/uL (150-450); RED BLOOD CELL COUNT(AUTO) 4.45 MIL/uL (4.00-5.20); RED CELL DISTRIBUTION WIDTH 17.5 % (11.5-14.5); WHITE BLOOD COUNT (AUTO) 5.8 K/uL (4.5-11.0)
[2023-11-27 11:55] VITALS: BP 129/79; PULSE 85; RESP 16; TEMP 97.4; O2SAT 98
[2023-11-27] MEDS ORDERED: SODIUM CHLORIDE IV SCH (22:00)
[2023-11-27] MEDS ORDERED: PPN IV SCH (22:00)
[2023-11-27] MEDS ORDERED: SODIUM ACETATE IV SCH (22:00)
[2023-11-27] MEDS ORDERED: [UNRECOGNIZED DRUG - OTHER] IV SCH (22:00)
== END 2023-11-27 16:55 | disposition short-term general hospital (02) | DRG 682 ==
LOC: EMS 11:56 → EDH 12:58 → 5S 16:30
PROVIDERS: ADMIT Internal Medicine; ATTEND Internal Medicine
PROC: 05H933Z Insertion of Infusion Device into Right Brachial Vein, Percutaneous Approach (ICD-10-PCS; principal; 2023-11-17)
DX: N17.9 Acute kidney failure, unspecified (principal); E43 Unspecified severe protein-calorie malnutrition; G92.9 Unspecified toxic encephalopathy; I47.20 Ventricular tachycardia, unspecified; F15.10 Other stimulant abuse, uncomplicated; I48.91 Unspecified atrial fibrillation; I10 Essential (primary) hypertension; F19.10 Other psychoactive substance abuse, uncomplicated; R94.6 Abnormal results of thyroid function studies; J44.9 Chronic obstructive pulmonary disease, unspecified; F43.21 Adjustment disorder with depressed mood; G47.10 Hypersomnia, unspecified; R62.7 Adult failure to thrive; Z72.0 Tobacco use; I25.10 Atherosclerotic heart disease of native coronary artery without angina pectoris; Z68.26 Body mass index [BMI] 26.0-26.9, adult
CPT/HCPCS: 36245; 36569; 70450; 70551; 71045; 76937; 80048; 80053; 80307; 81001; 82140; 82550; 82962; 83605; 83735; 83880; 84100; 84132; 84145; 84439; 84443; 84484; 85025; 85610; 87040; 93005; 97162; 99285; C9113; J0282; J0360; J1200; J1610; J1630; J1644; J1650; J2060; J2250; J3010; J3411; J3475; J3480; J3490; J7030; J7040; J7050; J7060; J7070; 36415-L1; 36415-TC